=== PATIENT | female | born 1980 | race Hispanic/Latino ===

== ENCOUNTER 2021-03-20 15:20 | Outpatient (AMBR) | payer OTHER, SELFPAY ==
--- NOTE | 2021-02-27 15:41 | PTNOTE_ITS ---
PT OP Initial Eval Patient Information Visit Reasons: RIGHT HIP/LUMBAR Medical Diagnosis: M54.17; M25.551 Treatment Dx #1: Back Pain Treatment Dx #2: Right Hip Pain Initial Assessment Subjective Pt is a 40 y/o female c/o chronic back and right hip pain started several months ago. Pt mention that the shot in the hip and previous physical therapy for the hip did not help much. Per Surgeon she seems to have a L5 disc issue where it's bone on bone and recommends her to see a spine surgeon. Pt's average pain is 8/ 10 based upon activities and time of the day. Pt still has limitation with standing, walking, lifting, chores, work duties, recreational activities, bending down, and prolonged sitting. Objective L/S AROM: all motions are WFL except end range flexion and extension with pain Right Hip PROM: all motions are WFL Right Hip MMTs Glute Med: 3/5 Glute Max: 3/5 Special Test (+) gentile (+) slump (+) SLR Palpation: TTP right L4-L5 facets Assessment Pt demonstrate back pain with mobility deficits consistent with possible lower disc involvement leading to decline function. Pt will attempt physical therapy if pain persist Pt will be refer back to MD for further consultation. Short Term and [employer] Operator Goals 1) Increase L/S AROM WFL in 6 wks to be able to sit and stand more than 1 hr 2) Increase core strength WFL in 6 wks to be able to perform lifting activities 3) Increase hip MMTs grossly to 4-/5 in 6 wks to be able to walk more than 1 hr 4) Decrease back pain to 2/10 in 6 wks to be able to return back to normal work duties 5) Indep with HEP Treatment Plan 1) Manual Therapy 2) Therapeutic Activities 3) Therapeutic Exercises 4) Modalities (ice, heat, traction) Frequency and Duration 2 x wk for 6 wks Certification Dates: 02/27/21 to 05/28/21 Office Procedures PT Treatments PT Date of Service: 02/27/21 OP PT Eval Mod Complex 30 minutes: Yes
--- NOTE | 2021-03-05 16:13 | PT.ODAYNRPT ---
PT Outpatient Daily Note Date of Service: 03/05/21 OP Daily Note Visit Reasons: RIGHT HIP/LUMBAR Outpatient Physical Therapy Treatment Date: 03/05/21 Subjective: Pt mention her back still hurts and right LE feels fatigue and heavy Objective: Please see flow chart for list of ther ex performed Assessment: tolerate exercises with minimal pain; difficulty with SLR nerve glide due to fatigue Plan: Continue with PT Length of Time (minutes) of Treatment: 30 Minutes Office Procedures PT Treatments PT Date of Service: 03/05/21 Therapeutic Exercise 30 minutes: Yes PT Treatments PT Date of Service: 02/27/21 OP PT Eval Mod Complex 30 minutes: Yes
--- NOTE | 2021-03-07 16:02 | PT.ODAYNRPT ---
PT Outpatient Daily Note Date of Service: 03/07/21 OP Daily Note Visit Reasons: RIGHT HIP/LUMBAR Outpatient Physical Therapy Treatment Date: 03/07/21 Subjective: Pt mention that her back is feeling worse today. Pt was a little sore after last treatment session. Pt mention that she had difficulty with the nerve glide exercises and can maybe only do 20 visits. Objective: Please see flow chart for list of ther ex performed Assessment: tolerate exercises, however, more difficulty performing exercises due to pain Plan: Continue with PT Length of Time (minutes) of Treatment: 30 Minutes Office Procedures PT Treatments PT Date of Service: 03/05/21 Therapeutic Exercise 30 minutes: Yes PT Treatments PT Date of Service: 02/27/21 OP PT Eval Mod Complex 30 minutes: Yes PT Treatments PT Date of Service: 03/07/21 Therapeutic Exercise 30 minutes: Yes
--- NOTE | 2021-03-12 15:30 | PT.ODAYNRPT ---
PT Outpatient Daily Note Date of Service: 03/12/21 OP Daily Note Visit Reasons: RIGHT HIP/LUMBAR Outpatient Physical Therapy Treatment Date: 03/12/21 Subjective: Pt's back is the same no change in overall symptoms. Pt does not want to attempt the mellissa method of treatment due to fear of back hurting more. Pt will like the same exercises with some heat Objective: Please see flow chart for list of ther ex performed Assessment: tolerate exercises with minimal pain Plan: Continue with PT Length of Time (minutes) of Treatment: 30 Minutes Office Procedures PT Treatments PT Date of Service: 03/05/21 Therapeutic Exercise 30 minutes: Yes PT Treatments PT Date of Service: 02/27/21 OP PT Eval Mod Complex 30 minutes: Yes PT Treatments PT Date of Service: 03/07/21 Therapeutic Exercise 30 minutes: Yes PT Treatments PT Date of Service: 03/12/21 Therapeutic Exercise 30 minutes: Yes
--- NOTE | 2021-03-14 16:55 | PT.ODAYNRPT ---
PT Outpatient Daily Note Date of Service: 03/14/2021 OP Daily Note Visit Reasons: RIGHT HIP/LUMBAR Outpatient Physical Therapy Treatment Date: 03/14/21 Subjective: pt had just came from work. she has back pain although she is on light duty. Objective: see flow sheet. Assessment: pt was ok with supine position while on hot pack. she needed cuing for correction of the posterior pelvic tilts. once she was able to correct the form she completed the exercise. she was not able to complete all reps of HHR due to increase in discomfort. Plan: continue POC per PT. Length of Time (minutes) of Treatment: 30 Minutes Office Procedures PT Treatments PT Date of Service: 03/05/21 Therapeutic Exercise 30 minutes: Yes PT Treatments PT Date of Service: 02/27/21 OP PT Eval Mod Complex 30 minutes: Yes PT Treatments PT Date of Service: 03/07/21 Therapeutic Exercise 30 minutes: Yes PT Treatments PT Date of Service: 03/12/21 Therapeutic Exercise 30 minutes: Yes PT Treatments PT Date of Service: 03/14/21 Therapeutic Exercise 30 minutes: Yes
--- NOTE | 2021-03-20 15:51 | PT.ODS1RPT ---
PT OP Progress/Discharge Note Date of Service: 03/20/21 Progress Note/DC Note Progress Note/Discharge Note: DC Note Patient Information Visit Reasons: RIGHT HIP/LUMBAR Medical Diagnosis: M54.17; M25.551 Treatment Dx #1: Back Pain Treatment Dx #2: Right Hip Pain Service Continue Service or Discharge: Discharge Discharge Date: 03/20/21 Status Subjective: Pt mention that her back and right LE pain is the same. Pt continues to have intermittent numbness and weakness of the leg with activities. Pt has limitation with prolonged sitting, standing, walking, chores, lifting, work duties, and recreational activities. Pt stated that she's bee seeing [place] spine surgeon in [place]. Objective: L/S AROM: all motions are WFL except end range flexion and extension with pain Right Hip PROM: all motions are WFL Right Hip MMTs Glute Med: 3/5 Glute Max: 3/5 Special Test (+) slump (+) SLR Assessment: Pt continues to have spinal mobility deficits and pain leading to difficulty with work duties and ADLs. At this time Pt will no longer benefit from physical therapy due to minimal progression towards goals. Pt will be discharged and advised to follow up with MD for further consultation; thank you for your referrals. Plan: D/C home withand follow up with MD Office Procedures PT Treatments PT Date of Service: 03/05/21 Therapeutic Exercise 30 minutes: Yes PT Treatments PT Date of Service: 03/20/21 Therapeutic Exercise 30 minutes: Yes PT Treatments PT Date of Service: 02/27/21 OP PT Eval Mod Complex 30 minutes: Yes PT Treatments PT Date of Service: 03/07/21 Therapeutic Exercise 30 minutes: Yes PT Treatments PT Date of Service: 03/12/21 Therapeutic Exercise 30 minutes: Yes PT Treatments PT Date of Service: 03/14/21 Therapeutic Exercise 30 minutes: Yes
== END 2021-03-29 23:59 | disposition home or self-care (01) ==
PROVIDERS: PCP Nurse Practitioner Family; Referring Provider Nurse Practitioner Family; Visit Provider Orthopaedic Surgery
DX: M25.551 Pain in right hip (principal); M54.17 Radiculopathy, lumbosacral region; G89.29 Other chronic pain; R26.2 Difficulty in walking, not elsewhere classified
CPT/HCPCS: 97110; 97162